=== PATIENT | female | born 1970 ===

== ENCOUNTER 2017-12-16 10:46 | Emergency (ER) | payer MEDICAID ==
[2017-12-16 10:48] VITALS: BMI 28.3
[2017-12-16 10:50] VITALS: RESP 18; TEMP 98.1; O2SAT 97
[2017-12-16] MEDS ORDERED: Sodium Chloride 0.9% 500 ML IV STA (11:07)
--- NOTE | 2017-12-16 11:14 | ED PDOC ---
Arrival/HPI - General Chief Complaint: Weakness/Neurological Deficit Time Seen by Provider: 12/16/17 11:06 Historian: Patient - History of Present Illness Narrative History of Present Illness (Text): 12/16/17 11:12 A 47 year old female presents to the emergency department complaining of generalized myalgias, fever and nonproductive cough for 3 days. Patient notes decrease PO intake, non-bloody diarrhea and mild abdominal discomfort. Patient reports she did not receive the flu shot. Patient denies any ear pain, sore throat, nausea, vomiting, urinary symptoms, vaginal bleeding, vaginal discharge , chest pain, shortness of breath or any other complaints. Time/Duration: Other (3 days) Symptom Course: Unchanged Context: Home Past Medical History - Provider Review Nursing Documentation Reviewed: Yes - Infectious Disease Hx of Infectious Diseases: None - Tetanus Immunization Tetanus Immunization: Unknown - Cardiac Hx Cardiac Disorders: No - Pulmonary Hx Respiratory Disorders: No - Neurological Hx Neurological Disorder: No - HEENT Hx HEENT Disorder: No - Renal Hx Renal Disorder: No - Endocrine/Metabolic Hx Diabetes Mellitus Type 2: Yes - Hematological/Oncological Hx Blood Disorders: No - Integumentary Hx Dermatological Disorder: No - Musculoskeletal/Rheumatological Hx Herniated Disk: Yes - Gastrointestinal Hx Gastrointestinal Disorders: No - Genitourinary/Gynecological Hx Genitourinary Disorders: Yes Other/Comment: Endometriosis - Psychiatric Hx Psychophysiologic Disorder: No Hx Substance Use: No - Surgical History Hx Cholecystectomy: Yes Hx Hysterectomy: Yes Other/Comment: bladder surgery - Anesthesia Hx Anesthesia: Yes Hx Anesthesia Reactions: No Hx Malignant Hyperthermia: No - Suicidal Assessment Feels Threatened In Home Enviroment: No Family/Social History - Physician Review Nursing Documentation Reviewed: Yes Family/Social History: No Known Family HX Smoking Status: Never Smoked Hx Alcohol Use: No Hx Substance Use: No Hx Substance Use Treatment: No Allergies/Home Meds Allergies/Adverse Reactions: Allergies No Known Allergies Allergy (Verified 05/10/16 22:32) Home Medications: Home Meds Medication Instructions Recorded Confirmed Alogliptin Chuck/Metformin HCl 1 tab PO BID 12/16/17 12/16/17 [Alogliptin-Metformin 12.5-1000] Review of Systems - Physician Review All systems were reviewed & negative as marked: Yes - Review of Systems Constitutional: Fevers ENT: absent: TMJ Pain, Sore Throat Respiratory: Cough. absent: SOB, Sputum Cardiovascular: absent: Chest Pain Gastrointestinal: Abdominal Pain, Diarrhea, Appetite Changes. absent: Nausea, Vomiting Genitourinary Female: absent: Dysuria, Frequency, Hematuria, Vaginal Bleeding, Vaginal Discharge Musculoskeletal: Myalgias Physical Exam Vital Signs Reviewed: Yes Vital Signs Temp Pulse Resp BP Pulse Ox 12/16/17 13:14 90 18 110/63 97 12/16/17 10:49 98.1 F 103 H 18 104/71 97 Temperature: Afebrile Blood Pressure: Normal Pulse: Tachycardic Respiratory Rate: Normal Appearance: Positive for: Well-Appearing, Non-Toxic, Comfortable Pain Distress: None Mental Status: Positive for: Alert and Oriented X 3 - Systems Exam Head: Present: Atraumatic, Normocephalic Pupils: Present: PERRL Extroacular Muscles: Present: EOMI Conjunctiva: Present: Normal Ears: Present: Normal, NORMAL TM, Normal Canal. No: Erythema, TM Bulging, Fluid , TM Perf Mouth: Present: Moist Mucous Membranes Pharnyx: Present: Normal. No: ERYTHEMA, EXUDATE, TONSILS ENLARGED Neck: Present: Normal Range of Motion Respiratory/Chest: Present: Clear to Auscultation, Good Air Exchange. No: Respiratory Distress, Accessory Muscle Use Cardiovascular: Present: Regular Rate and Rhythm, Normal S1, S2. No: Murmurs Abdomen: Present: Tenderness (Suprapubic tenderness, right greater than left), Normal Bowel Sounds. No: Distention, Peritoneal Signs, Rebound, Guarding Back: Present: Normal Inspection Upper Extremity: Present: Normal Inspection, Normal ROM, NORMAL PULSES. No: Cyanosis, Edema Lower Extremity: Present: Normal Inspection, NORMAL PULSES, Normal ROM. No: Edema, CALF TENDERNESS Neurological: Present: GCS=15, CN II-XII Intact, Speech Normal Skin: Present: Warm, Dry, Normal Color. No: Rashes Psychiatric: Present: Alert, Oriented x 3, Normal Insight, Normal Concentration Medical Decision Making ED Course and Treatment: 12/16/17 11:12 Impression: A 47 year old female with generalized myalgias, fever, and nonproductive cough. Patient notes decrease PO intake, diarrhea and mild abdominal discomfort. Plan: -- Abdomen and pelvis CT -- Labs -- Influenza A B stat -- Urinalysis Toradol and IV fluids -- Reassess and disposition Progress Notes: Report Date : 12/16/2017 13:01:04 PROCEDURE: CT Abdomen and Pelvis with contrast Dictator : Asif Gao MD IMPRESSION: Findings suggestive of mesenteric adenitis. No significantly enlarged lymph nodes. No evidence of appendicitis. No other bowel pathology identified. 7 mm right lower lobe nodule warrants follow-up noncontrast chest CT examination 6-12 months. 12/16/17 13:42 Patient is tolerating po. She is afebrile and well appearing. She was given detailed return instructions and ambulated out of ED without issue. - Lab Interpretations Lab Results: 12/16/17 11:30 12/16/17 11:30 Lab Results 12/16/17 11:30: Sodium 142, Potassium 4.1, Chloride 101, Carbon Dioxide 26, Anion Gap 19, BUN 12, Creatinine 0.7, Est GFR ( Amer) > 60, Est GFR (Non- Af Amer) > 60, Random Glucose 142 H, Calcium 10.1, Total Bilirubin 0.7, AST 31, ALT 48, Alkaline Phosphatase 131 H, Total Protein 8.5 H, Albumin 4.2, Globulin 4.2, Albumin/Globulin Ratio 1.0 L, Lipase 67 12/16/17 11:30: Urine Color Yellow, Urine Appearance Sl cloudy, Urine pH 6.5, Ur Specific Elmer 1.020, Urine Protein 30 H, Urine Glucose (UA) Negative, Urine Ketones Trace H, Urine Blood Negative, Urine Nitrate Negative, Urine Bilirubin Small H, Urine Urobilinogen 2.0 H, Ur Leukocyte Esterase Trace H, Urine RBC 0 - 2, Urine WBC 5 - 10, Ur Epithelial Cells 4 - 5, Urine Bacteria Few 12/16/17 11:30: Influenza Typ A,B (EIA) Negative for flu a/b 12/16/17 11:30: WBC 14.0 H D, RBC 4.82, Hgb 14.7, Hct 43.6, MCV 90.5, MCH 30.5, MCHC 33.7, RDW 13.5, Plt Count 241, MPV 9.2, Gran % 86.3 H, Lymph % (Auto) 7.4 L , [place] % (Auto) 2.6, Eos % (Auto) 3.6, Baso % (Auto) 0.1, Gran # 12.05 H, Lymph # (Auto) 1.0 L, [place] # (Auto) 0.4, Eos # (Auto) 0.5, Baso # (Auto) 0.02 I have reviewed the lab results: Yes - RAD Interpretation Radiology Orders: 12/16/17 11:07 ABD & PELVIS IV CONTRAST ONLY [CT] Stat - Medication Orders Current Medication Orders: Discontinued Medications Sodium Chloride (Sodium Chloride 0.9%) 500 mls @ 999 mls/hr IV .Q31M STA Stop: 12/16/17 11:37 Last Admin: 12/16/17 11:41 Dose: 999 mls/hr eMAR Start Stop Document 12/16/17 11:41 [facility] (Rec: 12/16/17 11:41 [facility] [id number]) Intravenous Solution Start Date 12/16/17 Start Time 11:41 End Date 12/16/17 End time 12:15 Total Infusion Time 34 Ketorolac Tromethamine (Toradol) 30 mg IVP STAT STA Stop: 12/16/17 11:17 Last Admin: 12/16/17 11:41 Dose: 30 mg MAR Pain Assessment Document 12/16/17 11:41 [facility] (Rec: 12/16/17 11:42 [facility] [id number]) Pain Reassessment Is this a pain reassessment? No Sleep Is patient sleeping during reassessment? No Presence of Pain Presence of Pain Yes Pain Scale Used Pain Scale Used Numeric Location Left, Right or Bilateral Right Pain Location Body Site Abdomen Description Intensity of Pain at present 6 IVP Administration Document 12/16/17 11:41 [facility] (Rec: 12/16/17 11:42 [facility] [id number]) Charges for Administration # of IVP Administrations 1 - Scribe Statement The provider has reviewed the documentation as recorded by the Scribe Elina Carvajal Provider Scribe Attestation: All medical record entries made by the Scribe were at my direction and personally dictated by me. I have reviewed the chart and agree that the record accurately reflects my personal performance of the history, physical exam, medical decision making, and the department course for this patient. I have also personally directed, reviewed, and agree with the discharge instructions and disposition. Disposition/Present on Arrival - Present on Arrival Any Indicators Present on Arrival: No History of DVT/PE: No History of Uncontrolled Diabetes: No Urinary Catheter: No History of Decub. Ulcer: No History Surgical Site Infection Following: None - Disposition Have Diagnosis and Disposition been Completed?: Yes Diagnosis: Viral syndrome, Mesenteric adenitis, Lung nodule Disposition: HOME/ ROUTINE Disposition Time: 13:04 Patient Plan: Discharge Condition: GOOD Discharge Instructions (ExitCare): Viral Syndrome (ED), Mesenteric Adenitis (ED ), Pulmonary Nodules (ED) Print Language: KHMER Additional Instructions: Follow-up with PMD within 2 days. Return to ED if condition worsens. Rest and copious fluids. Motrin or tylenol for pain. You need repeat imaging in 6 months to evaluate your lung nodule. Referrals: [facility] Jake Rejuan, [Primary Care Provider] - Follow up with primary Forms: [facility] (Vietnamese), WORK NOTE
[2017-12-16 11:34] LABS: PH,URINE 6.5 (4.7-8.0); URINE BILIRUBIN SMALL (NEGATIVE); URINE BLOOD NEGATIVE (NEGATIVE); URINE GLUCOSE (UA) NEGATIVE (NEGATIVE); URINE LEUKOCYTE ESTERASE TRACE Leu/uL (NEGATIVE); URINE NITRATE NEGATIVE (NEGATIVE); URINE PROTEIN 30 mg/dL (<30 mg/dL)
[2017-12-16 11:36] LABS: URINE APPEARANCE SL CLOUDY (CLEAR); URINE COLOR YELLOW (YELLOW)
[2017-12-16 11:42] LABS: URINE BACTERIA FEW (NEG); URINE RBC 0 - 2 /hpf (0-2)
[2017-12-16 11:54] LABS: BASO # 0.02 K/mm3 (0.0-2.0); BASO % 0.1 % (0.0-3.0); EOS # 0.5 (0.0-0.7); EOS % 3.6 % (1.5-5.0); GRAN # 12.05 (1.4-6.5); GRAN % 86.3 % (50.0-68.0); HEMOGLOBIN 14.7 g/dL (12.0-16.0); LYMPH % 7.4 % (22.0-35.0); MEAN CELL VOLUME 90.5 fl (80.0-105.0); MEAN CORPUSCULAR HEMOGLOBIN 30.5 pg (25.0-35.0); MEAN CORPUSCULAR HGB CONC 33.7 g/dl (31.0-37.0); MEAN PLATELET VOLUME 9.2 fl (7.0-11.0); MONO # 0.4 (0.1-0.6); MONO % 2.6 % (1.0-6.0); RBC 4.82 10^6/uL (3.5-6.1); RED CELL DISTRIBUTION WIDTH 13.5 % (11.5-14.5)
[2017-12-16 12:03] LABS: ALBUMIN 4.2 g/dL (3.0-4.8); ALT/SGPT 48 U/L (7-56); AST/SGOT 31 U/L (14-36); BLOOD UREA NITROGEN 12 mg/dL (7-21); CALCIUM 10.1 mg/dL (8.4-10.5); GFR AFRICAN-AMERICAN > 60; GFR NON-AFRICAN AMERICAN > 60; LIPASE 67 U/L (23-300)
[2017-12-16] MEDS ORDERED: Iohexol 350 MG/100 ML VIAL ONE (12:05)
--- NOTE | 2017-12-16 13:02 | CT ---
PROCEDURE: CT Abdomen and Pelvis with contrast HISTORY: RLW pain COMPARISON: None. TECHNIQUE: Contrast dose: 100 mL Omnipaque 350 Radiation dose: Total exam DLP = 710.22 mGy-cm. This CT exam was performed using one or more of the following dose reduction techniques: Automated exposure control, adjustment of the mA and/or kV according to patient size, and/or use of iterative reconstruction technique. FINDINGS: LOWER THORAX: No infiltrate seen at lung bases. 7 mm noncalcified nodule in the right lower lobe (series 5, image 17). 5 mm left lower lobe nodule (image 27). 3 mm nodule right middle lobe (image 8). 5 mm right lower lobe nodule image 7). Followup for the 7 mm right lower lobe nodule is advised with noncontrast chest CT examination in 6-12 months as per Fleischner society criteria. LIVER: Unremarkable. No gross lesion or ductal dilatation. GALLBLADDER AND BILE DUCTS: Status post cholecystectomy PANCREAS: Unremarkable. No gross lesion or ductal dilatation. SPLEEN: Unremarkable. ADRENALS: Unremarkable. No mass. KIDNEYS AND URETERS: Unremarkable. No hydronephrosis. No solid mass. VASCULATURE: Unremarkable. No aortic aneurysm. BOWEL: Unremarkable. No obstruction. No gross mural thickening. APPENDIX: Normal appendix. PERITONEUM: Unremarkable. No free fluid. No free air. LYMPH NODES: Shotty subcentimeter mesenteric lymph nodes in the small bowel mesenteric as well as shotty retroperitoneal and pelvic nodes, suggesting possible mesenteric adenitis. No significantly enlarged lymph nodes are identified. All lymph nodes identified are less than 1 cm in short axis measurement. BLADDER: Nondistended REPRODUCTIVE: Status post hysterectomy BONES: No acute fracture. OTHER FINDINGS: None. IMPRESSION: Findings suggestive of mesenteric adenitis. No significantly enlarged lymph nodes. No evidence of appendicitis. No other bowel pathology identified. 7 mm right lower lobe nodule warrants follow-up noncontrast chest CT examination 6-12 months.
[2017-12-16 13:14] VITALS: BP 110/63; PULSE 90
== END 2017-12-16 13:12 | disposition home or self-care (01) ==
LOC: ED 10:46
DX: B34.9 Viral infection, unspecified (principal); I88.0 Nonspecific mesenteric lymphadenitis; R91.1 Solitary pulmonary nodule; E11.9 Type 2 diabetes mellitus without complications
CPT/HCPCS: 74177; 80053; 81001; 83690; 85025; 87086; 87181; 87804; 96361; 96374; 99285; J1885; J7040; Q9967